=== PATIENT | male | born 1985 | race Caucasian/White ===

== ENCOUNTER 2023-09-25 12:11 | Emergency (ER) | payer OTHER ==
[~2023-09-25] VITALS: Ht 188 cm; Wt 112.6 kg
[2023-09-25] MEDS ORDERED: ALLOPURINOL100 MG PO (12:30)
[2023-09-25] MEDS ORDERED: PERCOCET 5-3251 EACH PO (12:32)
[2023-09-25] MEDS ORDERED: VALACYCLOVIR1000 MG PO (12:32)
--- OUTSIDE RECORDS SUMMARY | 2023-09-25 12:48 | XMS ---
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 E.D. VISIT COUNT (12 MO.) 5 Felipe Arreguin 2 [facility] [address] [facility] 2 [facility] [address] [facility] 1 [facility] 1 [facility] 1 [facility] 1 [facility]: [facility] 1 [facility] [place] [facility] 1 [facility] 1 [facility] 1 [place] [facility] 1 [facility] 1 [facility] 1 Cullen Anders 1 [place] Ady MateoLebron_ TOTAL 25 NOTE: Visits indicate total known visits. ED/UCC VISIT TRACKING (12 MO.) 09/25/2023 12:11 BECKIE Garcia TYPE: Emergency COMPLAINT: - SKIN ISSUES 09/12/2023 12:37 [place] HCamryn MARCIAL TYPE: Emergency DIAGNOSES: - Zoster without complications - Rash - Shingles pain 08/03/2023 14:01 [facility] CONCEPCION Camryn TYPE: Emergency COMPLAINT: - R- rash DIAGNOSES: - Zoster with other complications - R- rash - Rash 07/30/2023 13:[address] [facility] Jordon MITCHELL TYPE: Emergency DIAGNOSES: - Zoster without complications - Rash 07/08/2023 13:30 [facility]: [facility] TYPE: Emergency DIAGNOSES: - Irritant contact dermatitis, unspecified cause - Irritant contact dermatitis, unspecified cause - Rash and other nonspecific skin eruption - Zoster without complications - Zoster without complications - RASH 05/31/2023 11:48 [facility] TYPE: Emergency DIAGNOSES: [address]. [place] [address]. Rash and other nonspecific skin eruption 05/03/2023 10:53 Cullen Donnelly Camryn Anders [facility] TYPE: Emergency COMPLAINT: - rash to torso DIAGNOSES: - Body mass index [BMI] 28.0-28.9, adult - Zoster without complications 04/24/2023 12:56 [facility] CONCEPCION Vang TYPE: Emergency DIAGNOSES: - Zoster without complications - Rash 04/18/2023 13:35 [facility] TYPE: Emergency DIAGNOSES: - Malingerer [conscious simulation] - Other chronic pain - Herpes Zoster - Neuralgia - Rash on abdomen 04/18/2023 11:59 [facility] TYPE: Emergency DIAGNOSES: - Malingerer [conscious simulation] - Opioid dependence with unspecified opioid-induced disorder - Procedure and treatment not carried out due to patient leaving prior to being seen by health care provider - Rash and other nonspecific skin eruption - shingles 04/04/2023 10:22 [facility] TYPE: Emergency COMPLAINT: - RASH ON R SIDE OF BODY DIAGNOSES: - Allergy status to analgesic agent - Rash and other nonspecific skin eruption - Zoster without complications 04/02/2023 15:59 BECKIE JAVIER TYPE: Emergency COMPLAINT: - POSS SHINGLES 03/30/2023 13:54 [facility] TYPE: Emergency COMPLAINT: - B02.9 DIAGNOSES: - Zoster without complications 03/23/2023 08:29 [facility] [place] TYPE: Emergency DIAGNOSES: - Zoster without complications - Herpes Zoster - shingles 03/16/2023 10:58 [facility]zma Canales [facility] TYPE: Emergency DIAGNOSES: - Elevated blood-pressure reading, without diagnosis of hypertension - Zoster without complications - Rash 03/11/2023 13:33 [facility] TYPE: Emergency DIAGNOSES: - Malingerer [conscious simulation] - Zoster with other complications - Rash 02/28/2023 13:07 [facility] TYPE: Emergency COMPLAINT: - Rash and other nonspecific skin eruption - SHINGLES DIAGNOSES: 1. Zoster without complications 02/17/2023 15:22 [facility] TYPE: Emergency DIAGNOSES: - Zoster without complications - Rash - rash on torso 01/30/2023 11:52 [facility] TYPE: Emergency COMPLAINT: - R-Shingles outbreak DIAGNOSES: - Zoster without complications - R-Shingles outbreak - Rash 01/29/2023 14:41 [facility] DIAGNOSES: - Otalgia, left ear - Tinnitus, left ear - Zoster with other complications - Ear Pain Plus 5 More Visits INPATIENT VISIT TRACKING (12 MO.) No inpatient visits to display in this time frame [id number]
[2023-09-25 12:53] VITALS: BP 157/105
== END 2023-09-25 12:53 | disposition home or self-care (01) ==
LOC: ED 12:11
DX: B02.9 Zoster without complications (principal)
CPT/HCPCS: 99283